=== PATIENT | male | born 1960 | race Caucasian/White ===

== ENCOUNTER 2017-10-13 20:17 | Emergency (ER) | payer OTHER ==
[~2017-10-13] VITALS: Ht 172.7 cm; Wt 83.5 kg
[~2017-10-13 20:17] MED LIST: AUGMENTIN 875 M1 TAB PO; CLARITIN10 MG PO; MEDROL DOSEPAK4 MG PO; NAPROSYN500 MG PO; PROVENTIL0.09 MG/AC IH; VOLTAREN75 MG PO
[2017-10-13] MEDS ORDERED: NEXIUM20 M1 PO (21:17)
[2017-10-13] MEDS ORDERED: SYMB160 INH (21:18)
[2017-10-13 21:20] LABS: BASO # 0.1 10*3/uL (0.0-0.1); BASO % 0.4 % (0.0-1.0); EOS # 0.2 10*3/uL (0.0-0.4); EOS % 1.2 % (1.0-4.0); HEMATOCRIT 48.3 % (42.0-52.0); LYMPH # 3.3 10*3/uL (1.3-4.4); MEAN CELL VOLUME 94.2 fl (80.0-94.0); MEAN CORPUSCULAR HGB 31.2 pg (27.0-31.0); MEAN CORPUSCULAR HGB CONC 33.1 g/dl (33.0-37.0); MEAN PLATELET VOLUME 9.7 fl (9.6-12.3); MONO % 7.5 % (3.0-9.0); NEUT # 9.2 10*3/uL (2.3-7.9); NEUT % 66.7 % (47.0-73.0); PLATELET COUNT AUTOMATED 250 10*3/uL (130-400); RED BLOOD COUNT 5.13 10*6/uL (4.50-5.90); RED CELL DISTRI WIDTH 12.4 % (0-14.5); WHITE BLOOD COUNT 13.8 10*3/uL (4.8-10.8)
[2017-10-13 21:34] LABS: ALBUMIN 4.1 gm/dl (3.1-4.5); ALKALINE PHOSPHATASE 39 U/L (45-117); BUN 9 mg/dl (7-24); CHLORIDE 101 mmol/L (98-107); CREATININE 0.79 mg/dL (0.70-1.30); POTASSIUM 3.8 mmol/L (3.5-5.1); SGOT/AST 13 IU/L (3-35); SGPT/ALT 26 U/L (12-78); SODIUM 141 mmol/L (136-145); TOTAL PROTEIN 7.7 gm/dL (6.4-8.2)
[2017-10-13] MEDS ORDERED: DELTASONE20 M1 PO (22:15)
[2017-10-13] MEDS ORDERED: VIBRAMYCIN100 MG PO (22:15)
== END 2017-10-13 23:31 | disposition home or self-care (01) ==
LOC: ED 20:17
PROVIDERS: Physician Assistant
DX: J44.9 Chronic obstructive pulmonary disease, unspecified (principal); R05 Cough; R09.89 Other specified symptoms and signs involving the circulatory and respiratory systems; Z79.899 Other long term (current) drug therapy; Z88.5 Allergy status to narcotic agent; Z91.018 Allergy to other foods

== ENCOUNTER 2017-10-21 20:31 | Inpatient (IN) | payer OTHER ==
[~2017-10-21] VITALS: Ht 172.7 cm; Wt 81.4 kg
--- NOTE | ~2017-10-21 | PR ---
[place], [place] PROGRESS NOTE NAME: ALEXYS QUACH UNIT #: [id number] ROOM: 511 DOCTOR: CANDE WORKMAN MD BIRTHDATE: [birth year] DOS: 10/25/2017 SUBJECTIVE: The patient states that he feels better this morning, finally his cough and shortness of breath have subsided. OBJECTIVE: VITAL SIGNS: Blood pressure is 111/71, pulse of 98, respirations 20, temperature 98.0. LUNGS: Diminished breath sounds, scattered wheezes and rales heard. HEART: Regular. ABDOMEN: Obese. EXTREMITIES: Without any edema. ASSESSMENT AND PLAN: 1. Multifocal pneumonia, on IV antibiotics. 2. Acute hypoxic respiratory failure, improving. The oxygen is being tapered off and he is allowed to ambulate. 3. Acute exacerbation of chronic obstructive pulmonary disease, on IV steroids, improvement in the bronchospasm. We will cut back on the dosage of the Solu-Medrol. CANDE WORKMAN MD CM:PNTRANS [id number] CANDE WORKMAN MD 10/25/17 0920 interface
--- NOTE | ~2017-10-21 | PR ---
[place], [place] PROGRESS NOTE NAME: ALEXYS QUACH UNIT #: [id number] ROOM: 511 DOCTOR: CANDE WORKMAN MD BIRTHDATE: [birth year] DOS: SUBJECTIVE: The patient is doing fine without any complaints. PHYSICAL EXAMINATION: GENERAL: She is awake and alert and oriented. VITAL SIGNS: Blood pressure is 117/73, pulse of 98, respirations 20, temperature 98.1. LUNGS: Diminished breath sounds. No wheezes, rales or rhonchi heard. HEART: Regular. ABDOMEN: Obese, soft. EXTREMITIES: Without any edema. ASSESSMENT AND PLAN: 1. Acute exacerbation of chronic obstructive pulmonary disease, improved. Bronchospasm has resolved. 2. Atypical pneumonia with diffuse ____ pattern, was on IV antibiotics. The chest x-ray has shown clearing of the pneumonia. Plan is to discharge her to home today to follow up as an outpatient. 3. Moderate cigarette smoking. Counseled against it. CANDE WORKMAN MD CM:PNTRANS [phone] CANDE WORKMAN MD 10/27/17 0452 interface
--- NOTE | ~2017-10-21 | PR ---
[place], [place] PROGRESS NOTE NAME: ALEXYS QUACH UNIT #: [id number] ROOM: 511 DOCTOR: CANDE WORKMAN MD BIRTHDATE: [birth year] DOS: 10/23/2017 SUBJECTIVE: The patient is feeling a little better, but he looks quite short of breath this morning. Saturations are normal. He does not appear to be hypoxic. He has got a moist cough and more short of breath. He also has been having diarrhea for the last few days, which all indicates he most likely has a viral syndrome. OBJECTIVE: VITAL SIGNS: Graphic trend shows blood pressure 107/67, pulse of 93, respirations 20, temperature 98.8. LUNGS: Diminished breath sounds, scattered rhonchi heard. HEART: Regular. ABDOMEN: Obese, soft, nontender. EXTREMITIES: Without any edema. ASSESSMENT AND PLAN: 1. Acute exacerbation of chronic obstructive pulmonary disease, on IV steroids. 2. Increased cough and shortness of breath. Chest x-ray was unremarkable. We will do a CT of the chest this morning to rule out underlying pneumonia. 3. Diarrhea, most likely viral syndrome. If it persists, stool titer will be ordered. Flu titers were negative. CANDE WORKMAN MD CM:PNTRANS [id number] CANDE WORKMAN MD 10/23/17 1957 interface
--- NOTE | ~2017-10-21 | WRIGHTHP ---
[place], [place] PATIENT HISTORY AND PHYSICAL EXAM NAME: ALEXYS QUACH UNIT #: [id number] ROOM: 511 DOCTOR: CANDE WORKMAN MD BIRTHDATE: [birth year] DOS: 10/21/2017 HISTORY OF PRESENT ILLNESS: The patient is 57 years old, comes in with complaints of difficulty breathing of a few days' duration. He states he is unable to take care of his breath by the end of the day after a long day of work. He has had cough which is productive of scant amounts of sputum. Denies having any chest pains or palpitations, not have any fever or chills. Does not have any abdominal pain, nausea, or any emesis. PAST MEDICAL HISTORY: Significant for: 1. COPD. 2. Gastroesophageal reflux disease. 3. Mild depression, major, recurrent. MEDICATIONS: Symbicort, diclofenac, Nexium, loratadine. He works at . SOCIAL HISTORY: Does not smoke, does not use any alcohol. Lives at home. PHYSICAL EXAMINATION: GENERAL: He is awake and alert and oriented. VITAL SIGNS: Graphic trend shows a pressure 119/66, pulse of 100, respirations 20, temperature 99.6. LUNGS: Diminished breath sounds, scattered wheezes heard. HEART: Regular. ABDOMEN: Obese, soft. EXTREMITIES: Without any edema. LABORATORY DATA: White cell count is elevated at 11.2. Comprehensive fairly within normal limits. ASSESSMENT AND PLAN: 1. The patient with COPD with acute exacerbation. The patient is placed on IV steroids and antibiotics. 2. Acute tracheobronchitis. Again, antibiotics have been added. 3. Acute respiratory distress syndrome from the underlying chronic obstructive pulmonary disease. The patient may benefit from a nebulizer at home. He is getting breathing treatments here, should be able to go home in a day or two. [place], [place] PATIENT HISTORY AND PHYSICAL EXAM NAME: ALEXYS QUACH UNIT #: [id number] ROOM: 511 DOCTOR: CANDE WORKMAN MD BIRTHDATE: [birth year] CANDE WORKMAN MD CM:HISPHYS:PATIENT HISTORY AND PHYSICAL EXAMINATION [id number] CANDE WORKMAN MD 10/22/17 0845 interface
--- NOTE | ~2017-10-21 | DS ---
[place], [place] [facility]CHARGE [id number] UNIT #: [id number] ROOM: 511 DOCTOR: CNADE WORKMAN MD BIRTHDATE: [birth year] DOS: 10/26/2017 DIAGNOSES: 1. Acute hypoxic respiratory failure. 2. Acute exacerbation of chronic obstructive pulmonary disease. 3. Multifocal pneumonia. 4. Possible Gram negative. 5. Moderate cigarette smoker. 6. Gastroesophageal reflux disease. DISCHARGE MEDICATIONS: Tapering dose of prednisone, Ceftin 250 twice daily for 7 days, breathing treatments of DuoNeb q.i.d., loratadine 10 daily, Nexium 40 daily, Symbicort 160 two puffs twice a day, diclofenac 100 mg daily p.r.n., vitamin D 1000 units daily. HOSPITAL COURSE: The patient is 57 years old, comes in with complaints of difficulty breathing. The patient has had a cough and sputum production for several days. He was found to be hypoxic and was admitted and after admission patient was placed on steroids and breathing treatments. The patient continued to get worse with increased bronchospasm. Initial chest x-rays were negative, so a CT of the chest was done, which showed pneumonia and severe emphysema. The patient is counseled against smoking. The patient is stable after multiple days of antibiotics and steroids and this morning, he can be discharged home for followup with Dr. Noriega as an outpatient. CANDE WORKMAN MD CM:REID [id number] CANDE WORKMAN MD 10/26/17 0913 interface
--- NOTE | ~2017-10-21 | PR ---
[place], [place] PROGRESS NOTE NAME: ALEXYS QUACH UNIT #: [id number] ROOM: 511 DOCTOR: CANDE WORKMAN MD BIRTHDATE: [birth year] DOS: SUBJECTIVE: The patient states that he feels better this morning. His shortness of breath and cough and chest discomfort is subsiding. OBJECTIVE: VITAL SIGNS: Blood pressure is 113/60, pulse of 52, respirations 20, temperature 97.8. LUNGS: Diminished breath sounds, clearer this morning. HEART: Regular. ABDOMEN: Obese, soft. EXTREMITIES: Without any edema. ASSESSMENT AND PLAN: 1. Acute exacerbation of chronic obstructive pulmonary disease, improvement with the current treatment plan. 2. Multifocal pneumonia noticed on the chest CT scan, possible gram-negative. The patient is on IV antibiotics. We will check a Legionella, mycoplasma titers. 3. Severe chronic obstructive pulmonary disease, on maximal treatment plan. 4. Benign hypertension, controlled. CANDE WORKMAN MD CM:PNTRANS [id number] CANDE WORKMAN MD 10/24/17 1330 interface
[~2017-10-21 20:31] MED LIST changes: +DELTASONE20 M1 PO; +NEXIUM20 M1 PO; +SYMB160 INH; +VIBRAMYCIN100 MG PO
[2017-10-21 20:33] VITALS: BP 120/77
[2017-10-21 21:05] VITALS: BP 132/68
[2017-10-21 21:16] LABS: BASO % 0.4 % (0.0-1.0); EOS % 0.1 % (1.0-4.0); HEMATOCRIT 49.8 % (42.0-52.0); HEMOGLOBIN 16.3 g/dl (14.0-18.0); LYMPH % 9.3 % (27.0-41.0); MEAN CELL VOLUME 95.8 fl (80.0-94.0); MEAN CORPUSCULAR HGB 31.3 pg (27.0-31.0); MEAN CORPUSCULAR HGB CONC 32.7 g/dl (33.0-37.0); MEAN PLATELET VOLUME 9.5 fl (9.6-12.3); MONO # 0.9 10*3/uL (0.1-1.0); MONO % 7.7 % (3.0-9.0); NEUT # 9.2 10*3/uL (2.3-7.9); NEUT % 82.1 % (47.0-73.0); PLATELET COUNT AUTOMATED 180 10*3/uL (130-400); RED CELL DISTRI WIDTH 12.9 % (0-14.5); WHITE BLOOD COUNT 11.2 10*3/uL (4.8-10.8)
[2017-10-21 21:40] LABS: ALBUMIN 3.7 gm/dl (3.1-4.5); ALKALINE PHOSPHATASE 37 U/L (45-117); BUN 12 mg/dl (7-24); CHLORIDE 100 mmol/L (98-107); CREATININE 0.88 mg/dL (0.70-1.30); POTASSIUM 4.2 mmol/L (3.5-5.1); SGOT/AST 14 IU/L (3-35); SGPT/ALT 26 U/L (12-78); SODIUM 136 mmol/L (136-145); TOTAL PROTEIN 7.3 gm/dL (6.4-8.2)
[2017-10-21 21:47] LABS: TROPONIN I < 0.015 ng/ml (<0.045)
[2017-10-21 22:09] VITALS: BP 130/68
[2017-10-21 23:03] VITALS: BP 115/65
[2017-10-22] VITALS: BP 119/66
[2017-10-22 08:00] VITALS: BP 127/80
[2017-10-22] MEDS ORDERED: VOLTAREN-XR100 MG PO (09:40)
[2017-10-22] MEDS ORDERED: VITAMIN D31000 UNI1 PO (09:44)
[2017-10-22 12:16] VITALS: BP 121/80
[2017-10-22 16:00] VITALS: BP 126/63
[2017-10-23] VITALS: BP 107/67
[2017-10-23 08:00] VITALS: BP 124/70
[2017-10-23 12:00] VITALS: BP 110/76
[2017-10-23 16:00] VITALS: BP 110/66
[2017-10-23 20:00] VITALS: BP 125/62
[2017-10-24] VITALS: BP 103/72
[2017-10-24 08:00] VITALS: BP 113/60
[2017-10-24 16:09] VITALS: BP 117/68
[2017-10-25 00:12] VITALS: BP 123/72
[2017-10-25 06:52] LABS: HEMATOCRIT 41.2 % (42.0-52.0); HEMOGLOBIN 13.9 g/dl (14.0-18.0); MEAN CELL VOLUME 94.3 fl (80.0-94.0); MEAN CORPUSCULAR HGB 31.8 pg (27.0-31.0); MEAN CORPUSCULAR HGB CONC 33.7 g/dl (33.0-37.0); MEAN PLATELET VOLUME 9.8 fl (9.6-12.3); PLATELET COUNT AUTOMATED 194 10*3/uL (130-400); RED BLOOD COUNT 4.37 10*6/uL (4.50-5.90); RED CELL DISTRI WIDTH 12.5 % (0-14.5); WHITE BLOOD COUNT 6.8 10*3/uL (4.8-10.8)
[2017-10-25 07:11] LABS: BUN 11 mg/dl (7-24); CHLORIDE 100 mmol/L (98-107); CREATININE 0.61 mg/dL (0.70-1.30); POTASSIUM 3.8 mmol/L (3.5-5.1); SODIUM 141 mmol/L (136-145)
[2017-10-25 07:32] LABS: ATYPICAL LYMPHS 4 % (0-0); PLATELET SUFFICIENCY NORMAL (NORMAL); TOTAL CELLS COUNTED 100 #CELLS
[2017-10-25 08:00] VITALS: BP 111/71
[2017-10-25 12:00] VITALS: BP 123/73
[2017-10-25 16:31] VITALS: BP 129/78
[2017-10-25 20:57] VITALS: BP 123/72
[2017-10-26 00:17] VITALS: BP 121/85
[2017-10-26 06:40] VITALS: BP 114/70
[2017-10-26 08:00] VITALS: BP 117/73
[2017-10-26] MEDS ORDERED: PREDNISONE5 MG PO (08:49)
[2017-10-26] MEDS ORDERED: CEFUROXIME AXE250 MG PO (08:49)
[2017-10-26] MEDS ORDERED: NEBULIZER (08:53)
[2017-10-26] MEDS ORDERED: DUONEB 3 MG/3 ML3 M1 INH (08:55)
== END 2017-10-26 10:08 | disposition home or self-care (01) | DRG 193 ==
LOC: ED 20:31 → 5E 22:27 → EDHOLD 22:27 → 5E 22:46
PROVIDERS: Emergency Medicine Emergency Medical Services; Internal Medicine
DX: J18.9 Pneumonia, unspecified organism (principal); J96.01 Acute respiratory failure with hypoxia; J44.0 Chronic obstructive pulmonary disease with (acute) lower respiratory infection; F33.0 Major depressive disorder, recurrent, mild; J44.1 Chronic obstructive pulmonary disease with (acute) exacerbation; J20.9 Acute bronchitis, unspecified; K21.9 Gastro-esophageal reflux disease without esophagitis; F17.210 Nicotine dependence, cigarettes, uncomplicated; I10 Essential (primary) hypertension; E66.9 Obesity, unspecified; Z68.27 Body mass index [BMI] 27.0-27.9, adult; Z71.6 Tobacco abuse counseling

== ENCOUNTER 2018-01-13 14:27 | Inpatient (IN) | payer OTHER ==
[~2018-01-13] VITALS: Ht 172.7 cm; Wt 79.5 kg
--- NOTE | ~2018-01-13 | DS ---
[place], [place] DISCHARGE SUMMARY NAME: ALEXYS QUACH UNIT #: [id number] ROOM: 528 DOCTOR: GONZÁLEZ FERNANDES MD BIRTHDATE: [birth year] DOS: 01/14/2018 DISCHARGE DIAGNOSES: 1. Acute exacerbation of chronic obstructive pulmonary disease and hypoxemia, improved with treatment. 2. Severe underlying chronic obstructive pulmonary disease and chronic respiratory failure. 3. History of vitamin D deficiency. 4. History of POLLEN allergies. 5. Gastroesophageal reflux disease and esophagitis. 6. Major depression, recurrent, mild. HOSPITAL COURSE: 1. The patient with significant underlying COPD with chronic respiratory failure, presented to my office with increased shortness of breath and his pulse ox was only 87% at room air at rest. The patient agreed to hospital admission and he was admitted and started on corticosteroids, oxygen, antibiotics and he improved quickly. Today, the patient is ambulating in the hallways and the oxygen is staying more than 90% at room air. The patient will be discharged to home on tapering down dose of prednisone and he will continue to take his DuoNebs at home along with Augmentin and see me on Tuesday. 2. Gastroesophageal reflux disease and esophagitis, asymptomatic with omeprazole. 3. Major depression, recurrent, and mild treated and controlled. 4. POLLEN allergies are asymptomatic with treatment. LABORATORY DATA: Chest x-ray showing COPD, no infiltrates. Normal serum electrolytes. Blood sugar elevated to 141. Normal CBC and platelets. DISCHARGE MANAGEMENT: Medrol Dosepak, omeprazole 40 mg a day. The patient will continue to take Symbicort inhaler at home, DuoNeb every 4 hours, Augmentin 875 mg twice a day for a week and I will see him in the office on Tuesday. [place], [place] DISCHARGE SUMMARY NAME: ALEXYS QUACH UNIT #: [id number] ROOM: 528 DOCTOR: GONZÁLEZ FERNANDES MD BIRTHDATE: [birth year] GONZÁLEZ FERNANDES MD CM:DISCHARG 15 23 GONZÁLEZ FERNANDES MD 01/14/182122 interface
--- NOTE | ~2018-01-13 | WRIGHTHP ---
[place], [place] PATIENT HISTORY AND PHYSICAL EXAM NAME: ALEXYS QUACH [facility] #: [id number] UNIT #: [id number] ROOM: 528 DOCTOR: GONZÁLEZ FERNANDES MD BIRTHDATE: [birth year] DOS: 01/13/2018 HISTORY OF PRESENT ILLNESS: 1. The patient with a history of advanced underlying chronic obstructive pulmonary disease. 2. History of pollen allergies. 3. History of vitamin D deficiency. 4. GERD and esophagitis. 5. Major depression, recurrent, mild. The patient presented to my office with increased shortness of breath and he was found to be hypoxemic with pulse ox at rest being 87%. The patient was diagnosed as having acute exacerbation of COPD and recommended for admission to the hospital, which he agreed and patient has been put on a cardiac monitored bed. No chest pain, no fainting episodes. HOME MEDICATIONS: The patient takes Combivent inhaler, Tylenol at home and DuoNeb. FAMILY HISTORY: Noncontributory. ALLERGIES: Known allergies to CODEINE. PHYSICAL EXAMINATION: GENERAL: Alert, oriented x 3, somewhat short of breath, but in no visible distress. VITAL SIGNS: Blood pressure 128/64-95 beats, breathing 20 times per minute, temperature 98.4 degrees Fahrenheit. HEENT AND NECK: Extraocular movements are intact. Sclerae are anicteric. Oral mucosa is moist and clean. No obvious facial weakness. Neck is supple without any lymphadenopathy. No thyromegaly. No JVD. No carotid arterial bruits. LUNGS: Decreased breath sounds all over and some expiratory wheezing. CARDIOVASCULAR SYSTEM: Heart rate is regular in rate and rhythm. S1 and S2 normally audible. No significant murmur or any other abnormal cardiac sounds. ABDOMEN: Soft, nontender. No obvious organomegaly. Bowel sounds are present. No obvious herniation. EXTREMITIES: Without significant cyanosis or edema. Warm to touch. CENTRAL NERVOUS SYSTEM: Alert and oriented x 3. Cranial nerves II-XII are intact. Speech is normal. The patient is able to move all extremities. Normal muscle strength. Deep tendon reflexes are equal on both sides. Plantars were downgoing. IMPRESSION: 1. Acute exacerbation of severe underlying chronic obstructive pulmonary disease with significant hypoxemia at rest, to be treated with oxygen, bronchodilators, nebulizer treatments with DuoNeb, corticosteroids and antibiotics and the patient to be observed closely on the cardiac monitored bed. 2. Gastroesophageal reflux disease. The patient on Nexium and asymptomatic without any heartburns. 3. History of centrilobular emphysema treated with Symbicort and DuoNeb as needed. [place], [place] PATIENT HISTORY AND PHYSICAL EXAM NAME: ALEXYS QUACH UNIT #: [id number] ROOM: 528 DOCTOR: DENA TERRELL,GONZÁLEZ Watkins BIRTHDATE: [birth year] 4. Pollen allergies treated and controlled with loratadine. 5. Acute over chronic respiratory failure, to be treated with bronchodilators, corticosteroids, oxygen, as mentioned above. GONZÁLEZ FERNANDES MD CM:HISPHYS:PATIENT HISTORY AND PHYSICAL EXAMINATION 34 38 GONZÁLEZ FERNANDES MD 01/13/182037 interface
[~2018-01-13 14:27] MED LIST changes: +CEFUROXIME AXE250 MG PO; +DUONEB 3 MG/3 ML3 M1 INH; +NEBULIZER; +PREDNISONE5 MG PO; +VITAMIN D31000 UNI1 PO; +VOLTAREN-XR100 MG PO
[2018-01-13 15:30] VITALS: BP 128/64
[2018-01-13 20:00] VITALS: BP 115/67
[2018-01-14] VITALS: BP 124/80
[2018-01-14 06:14] LABS: BASO % 0.2 % (0.0-1.0); HEMATOCRIT 46.9 % (42.0-52.0); HEMOGLOBIN 15.3 g/dl (14.0-18.0); LYMPH # 0.5 10*3/uL (1.3-4.4); LYMPH % 8.6 % (27.0-41.0); MEAN CELL VOLUME 97.3 fl (80.0-94.0); MEAN CORPUSCULAR HGB 31.7 pg (27.0-31.0); MEAN CORPUSCULAR HGB CONC 32.6 g/dl (33.0-37.0); MEAN PLATELET VOLUME 10.2 fl (9.6-12.3); MONO # 0.1 10*3/uL (0.1-1.0); MONO % 2.1 % (3.0-9.0); NEUT # 5.5 10*3/uL (2.3-7.9); NEUT % 88.9 % (47.0-73.0); PLATELET COUNT AUTOMATED 232 10*3/uL (130-400); RED BLOOD COUNT 4.82 10*6/uL (4.50-5.90); RED CELL DISTRI WIDTH 13.2 % (0-14.5); WHITE BLOOD COUNT 6.1 10*3/uL (4.8-10.8)
[2018-01-14 06:18] LABS: BUN 9 mg/dl (7-24); CHLORIDE 103 mmol/L (98-107); CREATININE 0.64 mg/dL (0.70-1.30); SODIUM 138 mmol/L (136-145)
[2018-01-14 08:00] VITALS: BP 124/79
[2018-01-14 12:00] VITALS: BP 118/78
[2018-01-14 16:00] VITALS: BP 113/75
[2018-01-14] MEDS ORDERED: MEDROL DOSEPAK4 MG PO (19:04)
== END 2018-01-14 19:50 | disposition home or self-care (01) | DRG 189 ==
LOC: 5E 14:27
PROVIDERS: Internal Medicine
DX: J96.21 Acute and chronic respiratory failure with hypoxia (principal); F33.0 Major depressive disorder, recurrent, mild; J44.1 Chronic obstructive pulmonary disease with (acute) exacerbation; K21.9 Gastro-esophageal reflux disease without esophagitis; J30.1 Allergic rhinitis due to pollen

== ENCOUNTER 2018-11-05 22:15 | Emergency (ER) | payer OTHER ==
[~2018-11-05] VITALS: Ht 172.7 cm; Wt 78.9 kg
== END 2018-11-05 22:45 | disposition home or self-care (01) ==
LOC: ED 22:15
DX: S50.812A Abrasion of left forearm, initial encounter (principal); J44.9 Chronic obstructive pulmonary disease, unspecified; Z88.6 Allergy status to analgesic agent; Z91.040 Latex allergy status; Z79.899 Other long term (current) drug therapy; W22.01XA Walked into wall, initial encounter; Y93.89 Activity, other specified; Y92.89 Other specified places as the place of occurrence of the external cause; Y99.8 Other external cause status

== ENCOUNTER 2019-01-16 19:22 | Emergency (ER) | payer OTHER ==
[~2019-01-16] VITALS: Ht 172.7 cm; Wt 78.0 kg
--- NOTE | ~2019-01-16 | EKG ---
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
--- NOTE | ~2019-01-16 | EKG ---
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
[2019-01-16 19:57] LABS: BASO # 0.1 10*3/uL (0.0-0.1); BASO % 0.8 % (0.0-1.0); EOS # 0.2 10*3/uL (0.0-0.4); EOS % 1.9 % (1.0-4.0); HEMATOCRIT 49.3 % (42.0-52.0); LYMPH # 3.9 10*3/uL (1.3-4.4); LYMPH % 32.7 % (27.0-41.0); MEAN CORPUSCULAR HGB 32.1 pg (27.0-31.0); MEAN CORPUSCULAR HGB CONC 32.5 g/dl (33.0-37.0); MEAN PLATELET VOLUME 9.6 fl (9.6-12.3); MONO % 8.1 % (3.0-9.0); NEUT # 6.7 10*3/uL (2.3-7.9); NEUT % 56.2 % (47.0-73.0); PLATELET COUNT AUTOMATED 240 10*3/uL (130-400); RED BLOOD COUNT 4.98 10*6/uL (4.50-5.90); RED CELL DISTRI WIDTH 12.3 % (0-14.5)
[2019-01-16 20:11] LABS: ACT PARTIAL THROMBO TIME 25.3 SECONDS (20.8-31.5); INTERNATIONAL NORM RATIO 0.9 (2.0-3.5)
[2019-01-16 20:14] LABS: ALKALINE PHOSPHATASE 36 U/L (45-117); BUN 14 mg/dl (7-24); CHLORIDE 106 mmol/L (98-107); CREATININE 0.81 mg/dL (0.70-1.30); POTASSIUM 3.8 mmol/L (3.5-5.1); SGOT/AST 17 IU/L (3-35); SGPT/ALT 25 U/L (12-78); SODIUM 141 mmol/L (136-145); TOTAL PROTEIN 7.4 gm/dL (6.4-8.2)
[2019-01-16 20:15] LABS: TROPONIN I < 0.015 ng/ml (<0.045)
== END 2019-01-16 22:39 ==
LOC: ED 19:22
PROVIDERS: Emergency Medicine Emergency Medical Services
DX: R07.89 Other chest pain (principal); R06.02 Shortness of breath; R10.13 Epigastric pain; R11.0 Nausea; K59.00 Constipation, unspecified; R05 Cough; F43.9 Reaction to severe stress, unspecified; J44.9 Chronic obstructive pulmonary disease, unspecified; F17.200 Nicotine dependence, unspecified, uncomplicated; Z88.6 Allergy status to analgesic agent; Z91.040 Latex allergy status; Z79.899 Other long term (current) drug therapy; Z90.49 Acquired absence of other specified parts of digestive tract

== ENCOUNTER → 2019-11-28 | Outpatient (CLI) | payer OTHER | END | disposition home or self-care (01) | LOC: LAB 15:27 | DX: K90.0 Celiac disease (principal) ==

== ENCOUNTER → 2020-01-03 | Outpatient (CLI) | payer OTHER ==
[2020-01-03 12:44] LABS: BASO # 0.1 10*3/uL (0.0-0.1); BASO % 0.6 % (0.0-1.0); EOS # 0.2 10*3/uL (0.0-0.4); EOS % 1.7 % (1.0-4.0); HEMATOCRIT 48.2 % (42.0-52.0); LYMPH # 3.3 10*3/uL (1.3-4.4); LYMPH % 29.2 % (27.0-41.0); MEAN CELL VOLUME 97.6 fl (80.0-94.0); MEAN CORPUSCULAR HGB CONC 32.8 g/dl (33.0-37.0); MEAN PLATELET VOLUME 9.5 fl (9.6-12.3); MONO # 0.9 10*3/uL (0.1-1.0); MONO % 8.1 % (3.0-9.0); NEUT # 6.9 10*3/uL (2.3-7.9); PLATELET COUNT AUTOMATED 283 10*3/uL (130-400); RED BLOOD COUNT 4.94 10*6/uL (4.50-5.90); RED CELL DISTRI WIDTH 12.8 % (0-14.5); WHITE BLOOD COUNT 11.4 10*3/uL (4.8-10.8)
[2020-01-03 13:00] LABS: ALBUMIN 3.9 gm/dl (3.1-4.5); ALKALINE PHOSPHATASE 32 U/L (45-117); BUN 10 mg/dl (7-24); CHLORIDE 106 mmol/L (98-107); CHOLESTEROL 155 mg/dL (<200); CREATININE 0.67 mg/dL (0.70-1.30); FREE T4 1.05 ng/dl (0.76-1.46); HDL CHOLESTEROL 46 mg/dl (40-60); LDL CHOLESTEROL 96 mg/dL (9-159); SGOT/AST 12 IU/L (3-35); SGPT/ALT 28 U/L (12-78); SODIUM 139 mmol/L (136-145); TOTAL PROTEIN 7.2 gm/dL (6.4-8.2); TRIGLYCERIDES 65 mg/dl (<150); VLDL CHOLESTEROL 13 mg/dL (6-40)
[2020-01-03 13:40] LABS: VITAMIN D, 25-HYDROXY 54.9 ng/mL (30-100)
== END | disposition home or self-care (01) ==
LOC: LAB 12:18
PROVIDERS: Internal Medicine
DX: Z00.00 Encounter for general adult medical examination without abnormal findings (principal); Z13.1 Encounter for screening for diabetes mellitus; Z13.21 Encounter for screening for nutritional disorder; Z13.220 Encounter for screening for lipoid disorders; Z12.5 Encounter for screening for malignant neoplasm of prostate; E55.9 Vitamin D deficiency, unspecified

== ENCOUNTER → 2020-02-21 | Outpatient (CLI) | payer OTHER | END | disposition home or self-care (01) | LOC: CT 07:42 | DX: N28.89 Other specified disorders of kidney and ureter (principal); R14.0 Abdominal distension (gaseous); Z90.49 Acquired absence of other specified parts of digestive tract ==

== ENCOUNTER → 2020-07-04 | Outpatient (CLI) | payer OTHER | LOC: LAB 14:23 | PROVIDERS: ATTEND Internal Medicine | DX: J44.1 Chronic obstructive pulmonary disease with (acute) exacerbation (principal) ==

== ENCOUNTER 2020-10-02 08:49 | Emergency (ER) | payer OTHER ==
[~2020-10-02] VITALS: Wt 79.4 kg
== END 2020-10-02 10:29 | disposition home or self-care (01) ==
LOC: ED 08:49
DX: S92.354A Nondisplaced fracture of fifth metatarsal bone, right foot, initial encounter for closed fracture (principal); Z88.6 Allergy status to analgesic agent; Z79.899 Other long term (current) drug therapy; X58.XXXA Exposure to other specified factors, initial encounter; Y93.89 Activity, other specified; Y92.89 Other specified places as the place of occurrence of the external cause; Y99.8 Other external cause status

== ENCOUNTER 2021-03-01 13:34 | Inpatient (IN) | payer OTHER ==
[~2021-03-01] VITALS: Ht 172.7 cm; Wt 81.9 kg
[2021-03-01 13:57] VITALS: BP 151/89
[2021-03-01 14:33] LABS: BASO % 0.3 % (0.0-1.0); EOS # 0.1 10*3/uL (0.0-0.4); EOS % 0.4 % (1.0-4.0); HEMATOCRIT 48.6 % (42.0-52.0); LYMPH # 3.1 10*3/uL (1.3-4.4); LYMPH % 21.4 % (27.0-41.0); MEAN CELL VOLUME 96.6 fl (80.0-94.0); MEAN CORPUSCULAR HGB 31.2 pg (27.0-31.0); MEAN CORPUSCULAR HGB CONC 32.3 g/dl (33.0-37.0); MONO # 1.3 10*3/uL (0.1-1.0); MONO % 9.4 % (3.0-9.0); NEUT # 9.7 10*3/uL (2.3-7.9); NEUT % 67.9 % (47.0-73.0); PLATELET COUNT AUTOMATED 295 10*3/uL (130-400); RED BLOOD COUNT 5.03 10*6/uL (4.50-5.90); RED CELL DISTRI WIDTH 13.2 % (0-14.5); WHITE BLOOD COUNT 14.3 10*3/uL (4.8-10.8)
[2021-03-01 14:50] LABS: ALBUMIN 3.7 gm/dl (3.1-4.5); ALKALINE PHOSPHATASE 37 U/L (45-117); BUN 14 mg/dl (7-24); CHLORIDE 105 mmol/L (98-107); CREATININE 0.62 mg/dL (0.70-1.30); SGOT/AST 14 IU/L (3-35); SGPT/ALT 31 U/L (12-78); SODIUM 137 mmol/L (136-145); TOTAL PROTEIN 7.2 gm/dL (6.4-8.2); TROPONIN I < 0.015 ng/ml (<0.045)
[2021-03-01] MEDS ORDERED: VOLTAREN50 M1 PO (19:53)
[2021-03-01] MEDS ORDERED: PRAMIPEXOLE DI0.5 MG PO (19:56)
[2021-03-01 20:35] VITALS: BP 142/92
[2021-03-02] VITALS: BP 139/77
[2021-03-02 06:15] LABS: BASO % 0.2 % (0.0-1.0); HEMATOCRIT 46.5 % (42.0-52.0); LYMPH # 1.1 10*3/uL (1.3-4.4); LYMPH % 11.4 % (27.0-41.0); MEAN CELL VOLUME 95.1 fl (80.0-94.0); MEAN CORPUSCULAR HGB 30.7 pg (27.0-31.0); MEAN CORPUSCULAR HGB CONC 32.3 g/dl (33.0-37.0); MEAN PLATELET VOLUME 9.7 fl (9.6-12.3); MONO # 0.5 10*3/uL (0.1-1.0); MONO % 4.8 % (3.0-9.0); NEUT # 8.1 10*3/uL (2.3-7.9); NEUT % 82.9 % (47.0-73.0); PLATELET COUNT AUTOMATED 286 10*3/uL (130-400); RED BLOOD COUNT 4.89 10*6/uL (4.50-5.90); RED CELL DISTRI WIDTH 12.8 % (0-14.5); WHITE BLOOD COUNT 9.8 10*3/uL (4.8-10.8)
[2021-03-02 08:00] VITALS: BP 154/89
[2021-03-02 12:00] VITALS: BP 133/89
[2021-03-02 16:00] VITALS: BP 155/90
[2021-03-02 20:00] VITALS: BP 135/85
[2021-03-03] VITALS: BP 130/85
[2021-03-03 06:03] LABS: BASO % 0.1 % (0.0-1.0); HEMATOCRIT 46.5 % (42.0-52.0); LYMPH # 1.3 10*3/uL (1.3-4.4); LYMPH % 9.6 % (27.0-41.0); MEAN CELL VOLUME 96.7 fl (80.0-94.0); MEAN CORPUSCULAR HGB 31.2 pg (27.0-31.0); MEAN CORPUSCULAR HGB CONC 32.3 g/dl (33.0-37.0); MONO # 0.9 10*3/uL (0.1-1.0); MONO % 6.6 % (3.0-9.0); NEUT # 11.4 10*3/uL (2.3-7.9); NEUT % 83.1 % (47.0-73.0); PLATELET COUNT AUTOMATED 305 10*3/uL (130-400); RED BLOOD COUNT 4.81 10*6/uL (4.50-5.90); RED CELL DISTRI WIDTH 12.6 % (0-14.5); WHITE BLOOD COUNT 13.7 10*3/uL (4.8-10.8)
[2021-03-03 08:00] VITALS: BP 136/82
[2021-03-03 12:00] VITALS: BP 129/73
[2021-03-03 16:00] VITALS: BP 138/66
[2021-03-03 20:04] VITALS: BP 132/71
[2021-03-04] VITALS: BP 130/67
[2021-03-04 06:20] LABS: BASO % 0.2 % (0.0-1.0); HEMATOCRIT 45.3 % (42.0-52.0); LYMPH # 1.3 10*3/uL (1.3-4.4); LYMPH % 10.1 % (27.0-41.0); MEAN CELL VOLUME 97.4 fl (80.0-94.0); MEAN CORPUSCULAR HGB CONC 31.8 g/dl (33.0-37.0); MEAN PLATELET VOLUME 10.2 fl (9.6-12.3); MONO # 0.7 10*3/uL (0.1-1.0); MONO % 5.3 % (3.0-9.0); NEUT # 10.7 10*3/uL (2.3-7.9); NEUT % 83.5 % (47.0-73.0); PLATELET COUNT AUTOMATED 306 10*3/uL (130-400); RED BLOOD COUNT 4.65 10*6/uL (4.50-5.90); RED CELL DISTRI WIDTH 12.8 % (0-14.5); WHITE BLOOD COUNT 12.8 10*3/uL (4.8-10.8)
[2021-03-04 08:00] VITALS: BP 135/82
[2021-03-04] MEDS ORDERED: AUGMENTIN 875-875 MG PO (11:08)
[2021-03-04] MEDS ORDERED: MEDROL DOSEPAK4 MG PO (11:08)
== END 2021-03-04 11:51 | disposition home or self-care (01) | DRG 189 ==
LOC: ED 13:34 → EDHOLD 16:38 → 4E 16:38
PROVIDERS: Emergency Medicine; ADMIT Internal Medicine; ATTEND Internal Medicine
DX: J96.21 Acute and chronic respiratory failure with hypoxia (principal); J44.1 Chronic obstructive pulmonary disease with (acute) exacerbation; S92.901A Unspecified fracture of right foot, initial encounter for closed fracture; M19.90 Unspecified osteoarthritis, unspecified site; E55.9 Vitamin D deficiency, unspecified; X58.XXXA Exposure to other specified factors, initial encounter; K21.00 Gastro-esophageal reflux disease with esophagitis, without bleeding; G25.81 Restless legs syndrome; Z88.5 Allergy status to narcotic agent; Z79.899 Other long term (current) drug therapy; Y93.89 Activity, other specified; Y92.89 Other specified places as the place of occurrence of the external cause; Y99.8 Other external cause status

== ENCOUNTER → 2021-03-25 | Outpatient (CLI) | payer OTHER ==
[~2021-03-25] MED LIST changes: +AUGMENTIN 875-875 MG PO; +PRAMIPEXOLE DI0.5 MG PO; +VOLTAREN50 M1 PO
== END | disposition home or self-care (01) ==
LOC: RAD 13:24
PROVIDERS: ATTEND Internal Medicine
DX: M47.816 Spondylosis without myelopathy or radiculopathy, lumbar region (principal); M40.56 Lordosis, unspecified, lumbar region; M25.78 Osteophyte, vertebrae; I70.0 Atherosclerosis of aorta

== ENCOUNTER → 2021-06-03 | Outpatient (CLI) | payer OTHER | END | disposition home or self-care (01) | LOC: RAD 12:14 | PROVIDERS: ATTEND Internal Medicine | DX: M54.2 Cervicalgia (principal) ==

== ENCOUNTER → 2021-06-24 | Outpatient (CLI) | payer OTHER | END | disposition home or self-care (01) | LOC: MRI 14:49 | PROVIDERS: ATTEND Internal Medicine | DX: M48.02 Spinal stenosis, cervical region (principal); M47.812 Spondylosis without myelopathy or radiculopathy, cervical region; M25.78 Osteophyte, vertebrae ==

== ENCOUNTER 2021-10-19 06:52 | Inpatient (IN) | payer OTHER ==
[~2021-10-19] VITALS: Ht 173 cm; Wt 82.0 kg
[2021-10-19 07:12] VITALS: BP 135/66
[2021-10-19 07:32] LABS: BASO # 0.1 10*3/uL (0.0-0.1); BASO % 0.4 % (0.0-1.0); EOS # 0.1 10*3/uL (0.0-0.4); EOS % 1.1 % (1.0-4.0); LYMPH # 1.8 10*3/uL (1.3-4.4); LYMPH % 14.1 % (27.0-41.0); MEAN CELL VOLUME 96.8 fl (80.0-94.0); MEAN CORPUSCULAR HGB 31.2 pg (27.0-31.0); MEAN CORPUSCULAR HGB CONC 32.2 g/dl (33.0-37.0); MONO # 1.1 10*3/uL (0.1-1.0); MONO % 9.1 % (3.0-9.0); NEUT # 9.4 10*3/uL (2.3-7.9); NEUT % 74.3 % (47.0-73.0); PLATELET COUNT AUTOMATED 247 10*3/uL (130-400); RED BLOOD COUNT 5.06 10*6/uL (4.50-5.90); RED CELL DISTRI WIDTH 13.1 % (0-14.5); WHITE BLOOD COUNT 12.6 10*3/uL (4.8-10.8)
[2021-10-19 07:43] LABS: ACT PARTIAL THROMBO TIME 26.7 SECONDS (20.0-32.1); INTERNATIONAL NORM RATIO 0.9 (2.0-3.5)
[2021-10-19 07:47] LABS: ALBUMIN 3.3 gm/dl (3.1-4.5); ALKALINE PHOSPHATASE 50 U/L (45-117); BUN 18 mg/dl (7-24); CHLORIDE 103 mmol/L (98-107); CREATININE 0.56 mg/dL (0.70-1.30); SGOT/AST 10 IU/L (3-35); SGPT/ALT 25 U/L (12-78); SODIUM 138 mmol/L (136-145); TOTAL PROTEIN 6.7 gm/dL (6.4-8.2)
[2021-10-19 11:15] VITALS: BP 124/81
[2021-10-19] MEDS ORDERED: MIRAPEX0.5 MG PO (14:16)
[2021-10-19] MEDS ORDERED: COLACE100 MG PO (14:17)
[2021-10-19 14:39] VITALS: BP 118/79
[2021-10-19 18:41] VITALS: BP 129/85
[2021-10-19 19:36] VITALS: BP 139/81
[2021-10-19 22:11] VITALS: BP 124/72
[2021-10-20 00:35] VITALS: BP 133/91
[2021-10-20 02:00] VITALS: BP 154/90
[2021-10-20 05:57] LABS: BASO % 0.3 % (0.0-1.0); EOS % 0.2 % (1.0-4.0); HEMATOCRIT 43.4 % (42.0-52.0); LYMPH # 2.1 10*3/uL (1.3-4.4); LYMPH % 18.8 % (27.0-41.0); MEAN CELL VOLUME 94.6 fl (80.0-94.0); MEAN CORPUSCULAR HGB 31.2 pg (27.0-31.0); MEAN CORPUSCULAR HGB CONC 32.9 g/dl (33.0-37.0); MEAN PLATELET VOLUME 9.4 fl (9.6-12.3); MONO # 1.1 10*3/uL (0.1-1.0); MONO % 10.5 % (3.0-9.0); NEUT # 7.6 10*3/uL (2.3-7.9); NEUT % 69.3 % (47.0-73.0); PLATELET COUNT AUTOMATED 282 10*3/uL (130-400); RED BLOOD COUNT 4.59 10*6/uL (4.50-5.90); RED CELL DISTRI WIDTH 12.7 % (0-14.5); WHITE BLOOD COUNT 10.9 10*3/uL (4.8-10.8)
[2021-10-20 06:07] LABS: BUN 17 mg/dl (7-24); CHLORIDE 103 mmol/L (98-107); SODIUM 137 mmol/L (136-145)
[2021-10-20 08:00] VITALS: BP 144/87
[2021-10-20 12:00] VITALS: BP 138/77
[2021-10-20 16:00] VITALS: BP 115/79
[2021-10-20 20:00] VITALS: BP 134/80
[2021-10-21] VITALS: BP 138/86; BP 138/92
[2021-10-21 08:00] VITALS: BP 134/73
[2021-10-21] MEDS ORDERED: AUGMENTIN 875-875 MG PO (10:30)
[2021-10-21] MEDS ORDERED: MEDROL DOSEPAK4 MG PO (10:30)
== END 2021-10-21 11:40 | disposition home or self-care (01) | DRG 193 ==
LOC: ED 06:52 → 4E 09:11 → EDHOLD 09:11 → 4E 10-20 00:44
PROVIDERS: Emergency Medicine; Internal Medicine Critical Care Medicine; ADMIT Internal Medicine; ATTEND Internal Medicine
DX: J18.9 Pneumonia, unspecified organism (principal); J96.21 Acute and chronic respiratory failure with hypoxia; J44.1 Chronic obstructive pulmonary disease with (acute) exacerbation; J44.0 Chronic obstructive pulmonary disease with (acute) lower respiratory infection; Z20.822 Contact with and (suspected) exposure to COVID-19; E55.9 Vitamin D deficiency, unspecified; E03.9 Hypothyroidism, unspecified; J20.9 Acute bronchitis, unspecified; K21.00 Gastro-esophageal reflux disease with esophagitis, without bleeding; G25.81 Restless legs syndrome; M19.90 Unspecified osteoarthritis, unspecified site; Z88.5 Allergy status to narcotic agent

== ENCOUNTER → 2022-09-02 | Outpatient (CLI) | payer MEDICAID ==
[~2022-09-02] MED LIST changes: +COLACE100 MG PO; +MIRAPEX0.5 MG PO
[2022-09-02 13:05] LABS: BASO # 0.2 10*3/uL (0.0-0.1); BASO % 1.6 % (0.0-1.0); EOS # 0.8 10*3/uL (0.0-0.4); HEMATOCRIT 51.3 % (42.0-52.0); LYMPH % 30.9 % (27.0-41.0); MEAN CELL VOLUME 94.1 fl (80.0-94.0); MEAN CORPUSCULAR HGB 30.6 pg (27.0-31.0); MEAN CORPUSCULAR HGB CONC 32.6 g/dl (33.0-37.0); MEAN PLATELET VOLUME 9.5 fl (9.6-12.3); MONO # 0.9 10*3/uL (0.1-1.0); NEUT # 4.9 10*3/uL (2.3-7.9); NEUT % 50.3 % (47.0-73.0); PLATELET COUNT AUTOMATED 247 10*3/uL (130-400); RED BLOOD COUNT 5.45 10*6/uL (4.50-5.90); RED CELL DISTRI WIDTH 12.8 % (0-14.5); WHITE BLOOD COUNT 9.8 10*3/uL (4.8-10.8)
[2022-09-02 13:31] LABS: ALKALINE PHOSPHATASE 48 U/L (46-116); BUN 10 mg/dl (9-23); CHLORIDE 99 mmol/L (98-107); CHOLESTEROL 160 mg/dL (<200); CREATININE 0.73 mg/dL (0.70-1.30); LDL CHOLESTEROL 102 mg/dL (9-159); POTASSIUM 4.1 mmol/L (3.4-5.1); SGPT/ALT 16 U/L (10-49); SODIUM 136 mmol/L (136-145); THYROID STIM HORMONE (HS) 3.056 uIU/ml (0.550-4.780); TOTAL PROTEIN 6.9 gm/dL (6.0-8.0); TRIGLYCERIDES 96 mg/dl (<150)
[2022-09-02 14:08] LABS: VITAMIN D, 25-HYDROXY 51.8 ng/mL (30-100)
== END | disposition home or self-care (01) ==
LOC: LAB 12:42
PROVIDERS: ATTEND Internal Medicine
DX: Z13.820 Encounter for screening for osteoporosis (principal); Z12.5 Encounter for screening for malignant neoplasm of prostate; Z13.1 Encounter for screening for diabetes mellitus; Z13.89 Encounter for screening for other disorder; E55.9 Vitamin D deficiency, unspecified; Z13.0 Encounter for screening for diseases of the blood and blood-forming organs and certain disorders involving the immune mechanism; Z13.21 Encounter for screening for nutritional disorder; Z13.220 Encounter for screening for lipoid disorders; Z13.228 Encounter for screening for other metabolic disorders; Z13.6 Encounter for screening for cardiovascular disorders; Z13.9 Encounter for screening, unspecified

== ENCOUNTER → 2025-06-26 | Outpatient (CLI) | payer MEDICARE | END | disposition home or self-care (01) | LOC: CT 14:00 | PROVIDERS: ATTEND Internal Medicine | DX: Z12.2 Encounter for screening for malignant neoplasm of respiratory organs (principal); J43.9 Emphysema, unspecified; I51.7 Cardiomegaly; I25.10 Atherosclerotic heart disease of native coronary artery without angina pectoris; Z87.891 Personal history of nicotine dependence ==